=== PATIENT | male | born 1970 | race Caucasian/White ===

== ENCOUNTER → 2021-02-03 | Outpatient (CLI) | payer BC ==
[~2021-02-03] MED LIST: DITROPAN5 MG PO; FLOMAX0.4 MG PO; MOTRIN800 MG PO; NKHM; PERCOCET 325 MG1 TAB PO
== END | disposition home or self-care (01) ==
LOC: CARD 01-28 13:00 → US 01-28 14:00
PROVIDERS: ATTEND Internal Medicine
DX: I65.23 Occlusion and stenosis of bilateral carotid arteries (principal); R42 Dizziness and giddiness; R06.02 Shortness of breath